=== PATIENT | male | born 1945 | race Caucasian/White ===

== ENCOUNTER → 2017-11-14 | Outpatient (CLI) | payer OTHER ==
[~2017-11-14] MED LIST: ASPCH81 PO; FLUT0.15 NAE; FURO-85 PO; GLC/500 PO; HYZ/50125 PO; METO25TA56 PO; MULT-506 PO; ROSU5TAB PO; VNTHFA/IN INH
--- NOTE | 2017-11-14 13:26 | DIAGNOSTIC IMAGING REPORT ---
PET/CT CLINICAL HISTORY: Solitary pulmonary nodule. History of bladder cancer. TECHNIQUE: A PET/CT was performed from the skull base through the upper thighs following intravenous injection of 12.71 mCi of F 18 FDG IV. The injection was performed at 8:31 AM on November 14, 2017 and imaging began at 8:33 AM on November 14, 2017. Unenhanced CT was performed for attenuation correction purposes and anatomic localization. COMPARISON STUDY: None available at time of interpretation. FINDINGS: Head and neck: No enlarged cervical lymph nodes are noted. However, there is moderate FDG uptake within several nonenlarged right supraclavicular lymph nodes with an SUV max of 4.5. These nodes measure up to 7 mm in size and are shown on axial image 39 of 267. Chest: Moderate emphysema is noted. Note is made of an irregular 4.9 x 4.1 cm FDG avid right lower lobe mass with an SUV max of 12.5. This mass may be partially necrotic. There is mild airspace opacity within the anterior and lateral basilar segments of the right lower lobe which is likely postobstructive. Note is made of an indeterminate 1.5 cm groundglass opacity within the right lower lobe on image 119. This has no significant FDG uptake. Lungs are suboptimally assessed given respiratory motion. Heart is moderately enlarged. There are multiple mildly enlarged FDG avid mediastinal and right hilar lymph nodes. Index precarinal node shown image 70 measures 1.1 cm in short extremity and has an extremely max of 10. Subcarinal lymph node has a short axis diameter of 1.5 cm. Right hilar node measures 1.5 x 0.7 cm. Abdomen and Pelvis: No abdominal or pelvic lymphadenopathy is present. There is no abnormal FDG uptake within the abdomen or pelvis. Intrarenal abdominal aorta is ectatic, measuring 2.9 cm. Fat-containing left inguinal hernia is present. There is colonic diverticulosis without evidence for acute diverticulitis. Musculoskeletal: Innumerable sclerotic foci are noted within the visualized skeletal structures. A pathologic fracture is noted. A 2.4 cm right sacral ala lesion has an SUV max of 9.6. There are numerous vertebral lesions. No epidural extension of tumor is identified on this examination. IMPRESSION: 1. FDG avid 4.9 x 4.1 cm right lower lobe mass. The appearance favors bronchogenic carcinoma however metastatic bladder cancer could appear similar. 2. Extensive skeletal metastatic disease with innumerable FDG avid sclerotic skeletal lesions. No pathologic fracture. 3. FDG avid mediastinal, right hilar and right supraclavicular lymph nodes consistent with lv spread of disease. No abdominal or pelvic lymphadenopathy. 4. Moderate emphysema. 5. Indeterminate 1.5 cm groundglass opacity within the right lower lobe which could reflect mild airspace disease or a neoplasm. Electronically signed by: Stuart Tapia M.D. 11/14/2017 1:25 PM Dictated Date/Time: 11/14/2017 11:47 AM
== END | disposition home or self-care (01) ==
LOC: C.PET 07:53
PROVIDERS: ATTEND Thoracic Surgery (Cardiothoracic Vascular Surgery)
DX: C67.0 Malignant neoplasm of trigone of bladder (principal); R91.1 Solitary pulmonary nodule